=== PATIENT | female | born 1940 | race Caucasian/White ===

== ENCOUNTER 2019-07-17 10:13 | Inpatient (IN) | payer OTHER ==
[~2019-07-17] VITALS: Ht 165.1 cm; Wt 64.1 kg
[2019-07-17 10:42] LABS: Urine Amorphous Crystal FEW /hpf (None Seen); Urine Bacteria NONE SEEN /hpf (None Seen); Urine Blood Negative /uL (Negative); Urine Mucus FEW (None Seen); Urine Specific Gravity 1.017 (1.001-1.035); Urine WBC 1 /hpf (0 - 5)
[2019-07-17 10:52] LABS: Basophils # (auto) 0 10 ^3/uL (0-0.2); Eosinophils # (auto) 0.1 10 ^3/uL (0-0.8); Monocytes # (auto) 0.4 10 ^3/uL (0-1.3); Neutrophils # (auto) 2.2 10 ^3/uL (1.6-8.6); Neutrophils % (auto) 62.1 % (37.0-80.0); White Blood Cell 3.5 10^3/uL (4.4-10.8)
[2019-07-17 10:53] LABS: Basophils % (auto) 0.7 % (0.0-2.0); Eosinophils % (auto) 1.9 % (0.0-7.0); Hematocrit 34.5 % (36.0-46.0); Hemoglobin 11.2 g/dL (12.2-16.2); Lymphocytes # (auto) 0.9 10 ^3/uL (0.4-5.4); Lymphocytes % (auto) 24.2 % (10.0-50.0); Mean Corpuscular Hemoglobin 26.1 pg (28.0-32.0); Mean Corpuscular Hgb Conc. 32.4 g/dL (32.0-36.0); Mean Corpuscular Volume 80.5 fL (80.0-100.0); Monocytes % (auto) 11.1 % (0.0-12.0); Nucleated Red Blood Cells % 0.1 %; Platelet Count (auto) 98 10^3/uL (140-450); Red Blood Cells 4.28 10^6/uL (4.0-5.20); Red Cell Distribution Width 15.8 % (11.8-14.3)
[2019-07-17] MEDS ORDERED: PANTOPRAZOLE 40 MG/10 ML VIAL INJ IV ONE (11:00)
[2019-07-17 11:07] LABS: INR 1.01 (0.9-1.15); Partial Thromboplastin Time 28.1 sec (23.64-32.05)
[2019-07-17 11:13] LABS: Albumin 3.7 g/dL (3.4-5.0); Calcium 9.6 mg/dL (8.5-10.1); Potassium 3.6 mmol/L (3.5-5.1)
[2019-07-17 11:16] LABS: BUN/Creatinine Ratio 12.5; Bilirubin, Total 0.7 mg/dL (0.2-1.0); Total Protein 7.6 g/dL (6.4-8.2)
[2019-07-17] MEDS ORDERED: MORPHINE SULF INJ 2 MG/ML SYRINGE 1ML IV PRN (13:45)
[2019-07-17] MEDS ORDERED: NITROGLYCERIN 0.4 MG SL TAB SL PRN (13:45)
[2019-07-17] MEDS ORDERED: DEXTROSE (50%) 50ML SYRG IV PRN (13:45)
[2019-07-17] MEDS ORDERED: SODIUM CHLORIDE 0.9% 1,000 ML IV ONE (14:45)
[2019-07-17] MEDS: cefTRIAXone 1GM/50ML D5W 50 ML IV SCH (15:00)
[2019-07-17 16:50] VITALS: BP 146/82
[2019-07-17] MEDS: InsuLIN REG 1unit/0.01ml Soln (100units/ml) SC SCH ×2 (17:00→21:20)
--- NOTE | 2019-07-17 17:00 | NUR ---
Telemetry admit from ER PRETTY CHRISTIAN admitted to Telemetry unit after SBAR received. Patient oriented to Soledad Thao RN, unit, room, bed, and unit policies regarding patient care and visiting hours. Patient now on continuous telemetry monitoring, tele box # [id number] and telemetry reading on arrival to unit is 84. Patient tolerates room air, no acute distress noted, placed on standby bedside oxygen if needed, weighed by bed scale and encouraged to call if she needs something. All questions and concerns addressed, patient verbalized understanding. Note: Patient awake, oriented x4, no acute distress noted. Ambulatory to the bathroom.
--- NOTE | 2019-07-17 17:15 | NUR ---
Specimen bottle and hat provided for stool specimen collection to test for stool occult as ordered. Instructions given to patient to call/press the call light when she has the urge to have bowel movement for stool specimen collection.
[2019-07-17] MEDS: SUCRALFATE 1 GM TAB PO SCH ×2 (17:34→21:17)
[2019-07-17] MEDS: ACCU-CHEK COMFORT CURVE STRIP VI SCH ×2 (17:34→21:20)
--- NOTE | 2019-07-17 17:50 | NUR ---
Patient ambulated to the bathroom. Heart rate on phototypesetting equipment monitor >100.
[2019-07-17] MEDS ORDERED: TURM500C3 PO (17:51)
[2019-07-17] MEDS ORDERED: VITA80009 PO (17:51)
[2019-07-17] MEDS ORDERED: VITA400T4 PO (17:51)
[2019-07-17] MEDS ORDERED: OMEP20TA PO (17:51)
[2019-07-17] MEDS ORDERED: PYRI200T8 PO (17:51)
[2019-07-17] MEDS ORDERED: SELE200T23 PO (17:51)
[2019-07-17] MEDS ORDERED: CHOL20007 PO (17:51)
[2019-07-17] MEDS ORDERED: NITR1SPR TL (17:51)
[2019-07-17] MEDS ORDERED: GARL200T PO (17:51)
[2019-07-17] MEDS ORDERED: ACET-1156 PO (17:51)
[2019-07-17] MEDS ORDERED: GING500C3 PO (17:51)
[2019-07-17] MEDS ORDERED: AMLO5TAB15 PO (17:51)
[2019-07-17] MEDS ORDERED: CYA100I IM (17:51)
[2019-07-17] MEDS ORDERED: PRAV20TA3 PO (17:51)
--- NOTE | 2019-07-17 18:00 | NUR ---
Patient back to bed. No untoward incident noted.
--- NOTE | 2019-07-17 18:20 | NUR ---
Clear Liquid Diet dinner tray served.
--- NOTE | 2019-07-17 19:50 | NUR ---
Opening Shift Note Assumed care of patient, awake and alert. No S/S of distress/SOB or pain. Patient stated if she can have a bandaid, per patient " i have this scratch on my left hip from rolling around in bed at home and from my underwear." Bandaid provided to patient , area has two scratches to her left thigh/buttock.Instructed on POC and to call for assist PRN, will continue to monitor for changes Q1hr and PRN. bed in low position and call light within reach. bed in low position and call light within reach
[2019-07-17] MEDS: PANTOPRAZOLE 40 MG/10 ML VIAL INJ IV SCH (21:17)
[2019-07-17 22:00] VITALS: BP 138/71
[2019-07-18 05:00] VITALS: BP 134/56
[2019-07-18 05:47] LABS: Basophils # (auto) 0 10 ^3/uL (0-0.2); Eosinophils # (auto) 0.1 10 ^3/uL (0-0.8); Hemoglobin 10.2 g/dL (12.2-16.2); Monocytes % (auto) 12.4 % (0.0-12.0); Neutrophils # (auto) 1.1 10 ^3/uL (1.6-8.6); Nucleated Red Blood Cells % 0.1 %
[2019-07-18 05:49] LABS: Eosinophils % (auto) 3.9 % (0.0-7.0); Hematocrit 30.9 % (36.0-46.0); Lymphocytes # (auto) 0.5 10 ^3/uL (0.4-5.4); Mean Corpuscular Hemoglobin 26.5 pg (28.0-32.0); Mean Corpuscular Hgb Conc. 32.9 g/dL (32.0-36.0); Mean Corpuscular Volume 80.5 fL (80.0-100.0); Monocytes # (auto) 0.2 10 ^3/uL (0-1.3); Neutrophils % (auto) 55.7 % (37.0-80.0); Platelet Count (auto) 74 10^3/uL (140-450); Red Blood Cells 3.84 10^6/uL (4.0-5.20); Red Cell Distribution Width 15.7 % (11.8-14.3)
[2019-07-18 06:01] LABS: INR 1.09 (0.9-1.15); Partial Thromboplastin Time 28.9 sec (23.64-32.05)
[2019-07-18 06:02] LABS: Albumin 3.1 g/dL (3.4-5.0); Potassium 3.8 mmol/L (3.5-5.1)
[2019-07-18 06:08] LABS: BUN/Creatinine Ratio 11.9; Bilirubin, Total 0.5 mg/dL (0.2-1.0); Calcium 8.3 mg/dL (8.5-10.1); Total Protein 6.4 g/dL (6.4-8.2)
[2019-07-18] MEDS: ACCU-CHEK COMFORT CURVE STRIP VI SCH ×3 (06:32→21:56)
[2019-07-18] MEDS: SUCRALFATE 1 GM TAB PO SCH ×4 (06:32→21:56)
[2019-07-18] MEDS: InsuLIN REG 1unit/0.01ml Soln (100units/ml) SC SCH ×4 (06:32→21:58)
--- NOTE | 2019-07-18 06:58 | NUR ---
patient rounds patient is in bed sleeping. no signs of sob distress or pain. bed in low position and call light within reach
--- NOTE | 2019-07-18 07:34 | NUR ---
REPORT GIVEN TO DAYSHIFT RN PATIENT DENIES SOB DISTRESS OR PAIN
--- NOTE | 2019-07-18 08:30 | NUR ---
ASSUMED CARE. VERBALLY APPROPRIATE. PLEASANT. REPORTS WELL RESTED. LUNG SOUNDS CLEAR. INDEPENDENT IN ALL ADL'S. STOOL SPECIMEN COLLECTED AND SENT TO LAB. NO COMPLAINTS AT THIS TIME.
[2019-07-18 09:00] VITALS: BP 133/69
[2019-07-18] MEDS: cefTRIAXone 1GM/50ML D5W 50 ML IV SCH (09:00)
--- NOTE | 2019-07-18 10:00 | NUR ---
DR. CHIARA CHARLES. PLANS FOR EGD TODAY AT 1300. TO REMAIN NPO. ASKS FOR PREVIOUS RECORDS FROM LAST GI SCOPES.
[2019-07-18] MEDS: PANTOPRAZOLE 40 MG/10 ML VIAL INJ IV SCH (11:00)
--- NOTE | 2019-07-18 12:00 | NUR ---
CONSENTS SIGNED FOR EGD. AND REQUEST FAXED FOR MEDICAL RECORDS.
[2019-07-18 12:39] VITALS: BP 136/68
--- NOTE | 2019-07-18 12:45 | NUR ---
TO PRE OP IN BED. UPPER DENTURES AND RING REMOVED EACH PLACED IN CUP WITH LABEL AND SET IN TOP DRAWER OF BEDSIDE TABLE IN ROOM 221B
[2019-07-18] MEDS ORDERED: LIDOCAINE VISCOUS 2% 15ML UD ONE (12:50)
[2019-07-18] MEDS ORDERED: SODIUM CHLORIDE LOCK 10 ML ONE (12:50)
[2019-07-18] MEDS ORDERED: diphenhdrAMINE HCL 50 MG/1 ML VL ONE (12:51)
[2019-07-18] MEDS: MIDAZOLAM HCL 5 MG/ML-1ML VIAL ONE ×3 (13:30→13:36)
[2019-07-18] MEDS: fentaNYL CITRATE 100 MCG/2 ML VL ONE ×2 (13:30→13:33)
--- NOTE | 2019-07-18 14:30 | NUR ---
RETURNS TO ROOM 221B FULLY AWAKE. DENTURES AND RING HANDED TO PT. SHE PLACES DENTURES IN MOUTH AND RING BACK ON FINGER. RESTFUL. NO COMPLAINTS.
--- NOTE | 2019-07-18 16:16 | NUR ---
REQUESTS TO GO HOME TONIGHT. DR. MOREIRA CONTACTED BY PHONE MADE AWARE. ORDERS [facility] IN AM. PLANS FOR DC HOME TOMORROW AM IF HBG REMAINS STABLE. RELAYED PLANS TO PT. TOLERATING CLEAR LIQUIDS. DECLINES JELLO. MECH SOFT DIET ORDERED FOR DINNER.
[2019-07-18 16:20] VITALS: BP 112/78
--- NOTE | 2019-07-18 19:30 | NUR ---
Opening Shift Note Assumed care of patient, awake and alert. No S/S of distress/SOB or pain. Instructed on POC and to call for assist PRN, will continue to monitor for changes Q1hr and PRN. bed in low position call light within reach.
[2019-07-18 22:00] VITALS: BP 115/60
[2019-07-19 05:00] VITALS: BP 114/66
[2019-07-19] MEDS: InsuLIN REG 1unit/0.01ml Soln (100units/ml) SC SCH (06:17)
[2019-07-19] MEDS: SUCRALFATE 1 GM TAB PO SCH (06:18)
[2019-07-19 06:46] LABS: Basophils # (auto) 0 10 ^3/uL (0-0.2); Eosinophils # (auto) 0.1 10 ^3/uL (0-0.8); Lymphocytes # (auto) 0.7 10 ^3/uL (0.4-5.4); White Blood Cell 3.4 10^3/uL (4.4-10.8)
[2019-07-19 06:48] LABS: Basophils % (auto) 0.5 % (0.0-2.0); Hematocrit 35.7 % (36.0-46.0); Hemoglobin 11.7 g/dL (12.2-16.2); Lymphocytes % (auto) 20.2 % (10.0-50.0); Mean Corpuscular Hemoglobin 26.2 pg (28.0-32.0); Mean Corpuscular Hgb Conc. 32.6 g/dL (32.0-36.0); Mean Corpuscular Volume 80.3 fL (80.0-100.0); Monocytes # (auto) 0.3 10 ^3/uL (0-1.3); Monocytes % (auto) 10.2 % (0.0-12.0); Neutrophils # (auto) 2.3 10 ^3/uL (1.6-8.6); Neutrophils % (auto) 67.1 % (37.0-80.0); Platelet Count (auto) 97 10^3/uL (140-450); Red Blood Cells 4.45 10^6/uL (4.0-5.20); Red Cell Distribution Width 15.8 % (11.8-14.3)
--- NOTE | 2019-07-19 06:53 | NUR ---
patient rounds patient is in bed sleeping bilateral chest rise and fall rr 16. shows no signs of sob/distress or pain
--- NOTE | 2019-07-19 07:32 | NUR ---
REPORT GIVEN TO DAYSHIFT RN. PATIENT DENIES SOB DISTRESS OR PAIN
[2019-07-19 09:00] VITALS: BP 102/50
--- NOTE | 2019-07-19 09:00 | NUR ---
DR. MOREIRA ROUNDED. EXPLAINED IMPORTANCE OF TAKING NEW MEDICATIONS. INDEPENDENT IN ALL ADL'S. DENIES ANY S/S OF BLEEDING. PREPARING FOR DC HOME.
[2019-07-19 10:02] VITALS: BP 102/50
[2019-07-19] MEDS: PANTOPRAZOLE 40 MG/10 ML VIAL INJ IV SCH (10:30)
--- NOTE | 2019-07-19 11:00 | NUR ---
IV REMOVED CANNULA INTACT. DSG APPLIED. DC INSTRUCTIONS REVIEWED AND PRESCRIPTION PROVIDED. DC HOME VIA WC TO LOBBY BY JOSE.
== END 2019-07-19 10:55 | disposition home or self-care (01) | DRG 381 ==
LOC: ER 10:15 → TELE 10:16 → TELE-CENTR 17:26
PROVIDERS: ADMIT Nurse Practitioner Acute Care; ATTEND Family Medicine
PROC: 0DB68ZX Excision of Stomach, Via Natural or Artificial Opening Endoscopic, Diagnostic (ICD-10-PCS; 2019-07-18)
PROC: 0DB88ZX Excision of Small Intestine, Via Natural or Artificial Opening Endoscopic, Diagnostic (ICD-10-PCS; principal; 2019-07-18 13:27)
DX: K22.11 Ulcer of esophagus with bleeding (principal); K76.6 Portal hypertension; D62 Acute posthemorrhagic anemia; N30.00 Acute cystitis without hematuria; D61.818 Other pancytopenia; K44.9 Diaphragmatic hernia without obstruction or gangrene; K25.4 Chronic or unspecified gastric ulcer with hemorrhage; K74.60 Unspecified cirrhosis of liver; N18.3 Chronic kidney disease, stage 3 (moderate); N20.0 Calculus of kidney; I12.9 Hypertensive chronic kidney disease with stage 1 through stage 4 chronic kidney disease, or unspecified chronic kidney disease; K31.9 Disease of stomach and duodenum, unspecified; E11.22 Type 2 diabetes mellitus with diabetic chronic kidney disease; Z87.11 Personal history of peptic ulcer disease; Z79.84 Long term (current) use of oral hypoglycemic drugs; Z90.710 Acquired absence of both cervix and uterus; Z79.899 Other long term (current) drug therapy; Z90.49 Acquired absence of other specified parts of digestive tract
CPT/HCPCS: 36415; 43239; 71045; 74176; 80053; 81001; 82270; 82962; 83036; 84484; 85025; 85610; 85730; 86850; 86900; 86901; 96365; 96375; C9113; G0378; J0696; J1815; J2250

== ENCOUNTER 2019-08-27 19:34 | Emergency (ER) | payer OTHER ==
[~2019-08-27] VITALS: Ht 165.1 cm; Wt 63.5 kg
[~2019-08-27 19:34] MED LIST: ACET-1156 PO; AMLO5TAB15 PO; CHOL20007 PO; CYA100I IM; GARL200T PO; GING500C3 PO; NITR1SPR TL; OMEP20TA PO; PRAV20TA3 PO; PYRI200T8 PO; SELE200T23 PO; TURM500C3 PO; VITA400T4 PO; VITA80009 PO
[2019-08-27 20:07] LABS: Basophils # (auto) 0 10 ^3/uL (0-0.2); Eosinophils # (auto) 0.1 10 ^3/uL (0-0.8); Hematocrit 33.7 % (36.0-46.0); Lymphocytes # (auto) 0.6 10 ^3/uL (0.4-5.4); Mean Corpuscular Volume 78.4 fL (80.0-100.0); Monocytes # (auto) 0.3 10 ^3/uL (0-1.3); Neutrophils # (auto) 1.7 10 ^3/uL (1.6-8.6); Nucleated Red Blood Cells % 0.1 %; White Blood Cell 2.7 10^3/uL (4.4-10.8)
[2019-08-27 20:08] LABS: Basophils % (auto) 0.5 % (0.0-2.0); Eosinophils % (auto) 2.1 % (0.0-7.0); Hemoglobin 10.8 g/dL (12.2-16.2); Lymphocytes % (auto) 22.5 % (10.0-50.0); Mean Corpuscular Hemoglobin 25.1 pg (28.0-32.0); Mean Corpuscular Hgb Conc. 32.1 g/dL (32.0-36.0); Monocytes % (auto) 11.5 % (0.0-12.0); Neutrophils % (auto) 63.4 % (37.0-80.0); Platelet Count (auto) 103 10^3/uL (140-450); Red Cell Distribution Width 17.9 % (11.8-14.3)
[2019-08-27] MEDS ORDERED: SODIUM CHLORIDE 0.9% 500 ML IV ONE (20:15)
[2019-08-27] MEDS ORDERED: MORPHINE SULFATE 4 MG/ML SYR/VIAL IV ONE (20:15)
[2019-08-27] MEDS ORDERED: ONDANSETRON HCL 4 MG/2 ML VIAL IV ONE (20:15)
[2019-08-27 20:27] LABS: Alanine Aminotransferase 24 U/L (13-56); Albumin 3.3 g/dL (3.4-5.0); Anion Gap 5 (5-15); Aspartate Aminotransferase 23 U/L (15-37); BUN/Creatinine Ratio 13.1; Blood Urea Nitrogen 11 mg/dL (7-18); Calcium 9.2 mg/dL (8.5-10.1); Carbon Dioxide 26 mmol/L (21-32); Chloride 109 mmol/L (98-107); GFR African American 84 mL/min; GFR Non-African American 70 mL/min; Glucose 163 mg/dL (74-106); Potassium 3.7 mmol/L (3.5-5.1); Sodium 140 mmol/L (136-145)
[2019-08-27 20:28] LABS: INR 1.04 (0.9-1.15); Partial Thromboplastin Time 28.1 sec (23.64-32.05)
[2019-08-27 20:32] LABS: Alkaline Phosphatase 97 U/L (45-117); Bilirubin, Total 0.4 mg/dL (0.2-1.0); Total Protein 7.3 g/dL (6.4-8.2)
[2019-08-27 23:16] LABS: Urine Bacteria NONE SEEN /hpf (None Seen); Urine Blood Negative /uL (Negative); Urine Specific Gravity 1.007 (1.001-1.035); Urine WBC 11 /hpf (0 - 5)
[2019-08-28] MEDS ORDERED: MORPHINE SULFATE 4 MG/ML SYR/VIAL IV ONE (00:45)
[2019-08-28] MEDS ORDERED: cefTRIAXone 1GM/50ML D5W 50 ML IV SCH (09:00)
[2019-08-28 11:20] VITALS: BP 143/60
== END 2019-08-28 12:25 | disposition home or self-care (01) ==
LOC: ER 19:34
DX: R07.9 Chest pain, unspecified (principal); R79.1 Abnormal coagulation profile; D53.9 Nutritional anemia, unspecified; I10 Essential (primary) hypertension; E11.9 Type 2 diabetes mellitus without complications; Z91.041 Radiographic dye allergy status; Z90.49 Acquired absence of other specified parts of digestive tract; Z90.710 Acquired absence of both cervix and uterus; Z79.899 Other long term (current) drug therapy; Z88.8 Allergy status to other drugs, medicaments and biological substances
CPT/HCPCS: 36415; 71045; 78582; 80053; 81001; 82962; 83605; 83735; 83880; 84443; 84484; 85025; 85379; 85610; 85730; 87040; 93005; 93970; 96365; 96375; 96376; 99285; J2270; J2405; J7040

== ENCOUNTER → 2019-12-13 | Emergency (ER) | payer OTHER ==
[~2019-12-13] VITALS: Ht 165.1 cm; Wt 63.5 kg
[~2019-12-13] MED LIST changes: +ONDANSETRON HCL 4 MG/2 ML VIAL IV ONE; +PANTOPRAZOLE 40 MG/10 ML VIAL INJ IV ONE; +SODIUM CHLORIDE 0.9% 1,000 ML IV ONE; +SODIUM CHLORIDE 0.9% 1,000 ML IVB ONE
[2019-12-13 14:26] LABS: Basophils # (auto) 0 10 ^3/uL (0-0.2); Eosinophils # (auto) 0.1 10 ^3/uL (0-0.8); Lymphocytes # (auto) 0.7 10 ^3/uL (0.4-5.4); Monocytes # (auto) 0.4 10 ^3/uL (0-1.3); Neutrophils # (auto) 2.8 10 ^3/uL (1.6-8.6); Red Blood Cells 4.41 10^6/uL (4.0-5.20)
[2019-12-13 14:28] LABS: Basophils % (auto) 0.7 % (0.0-2.0); Eosinophils % (auto) 1.4 % (0.0-7.0); Hematocrit 33.1 % (36.0-46.0); Hemoglobin 10.3 g/dL (12.2-16.2); Lymphocytes % (auto) 18.3 % (10.0-50.0); Mean Corpuscular Hemoglobin 23.5 pg (28.0-32.0); Mean Corpuscular Hgb Conc. 31.3 g/dL (32.0-36.0); Mean Corpuscular Volume 74.9 fL (80.0-100.0); Monocytes % (auto) 10.5 % (0.0-12.0); Neutrophils % (auto) 69.1 % (37.0-80.0); Nucleated Red Blood Cells % 0.1 %; Platelet Count (auto) 97 10^3/uL (140-450); Red Cell Distribution Width 19.7 % (11.8-14.3)
[2019-12-13 14:51] LABS: Albumin 3.6 g/dL (3.4-5.0); Anion Gap 4 (5-15); Blood Urea Nitrogen 9 mg/dL (7-18); Calcium 9.3 mg/dL (8.5-10.1); Carbon Dioxide 27 mmol/L (21-32); Chloride 108 mmol/L (98-107); Glucose 81 mg/dL (74-106); Potassium 3.5 mmol/L (3.5-5.1); Sodium 139 mmol/L (136-145)
[2019-12-13 14:57] LABS: Alanine Aminotransferase 25 U/L (13-56); Alkaline Phosphatase 85 U/L (45-117); Aspartate Aminotransferase 22 U/L (15-37); BUN/Creatinine Ratio 12.5; Bilirubin, Total 0.7 mg/dL (0.2-1.0); GFR African American 100 mL/min; GFR Non-African American 83 mL/min; Total Protein 7.2 g/dL (6.4-8.2)
[2019-12-13 16:19] LABS: Urine Bacteria MANY /hpf (None Seen); Urine Blood Negative /uL (Negative); Urine Mucus FEW (None Seen); Urine Specific Gravity 1.009 (1.001-1.035); Urine WBC 10 /hpf (0 - 5)
[2019-12-13 18:28] VITALS: BP 136/61
[2019-12-13 18:36] LABS: INR 1.03 (0.9-1.15); Partial Thromboplastin Time 28.1 sec (23.0-31.2)
== END | disposition home or self-care (01) ==
LOC: ER 13:42
DX: D50.0 Iron deficiency anemia secondary to blood loss (chronic) (principal); D69.6 Thrombocytopenia, unspecified; N39.0 Urinary tract infection, site not specified; N20.0 Calculus of kidney; R18.8 Other ascites; K74.60 Unspecified cirrhosis of liver; K92.1 Melena; I10 Essential (primary) hypertension; E11.9 Type 2 diabetes mellitus without complications; Z88.6 Allergy status to analgesic agent; Z91.041 Radiographic dye allergy status; Z88.8 Allergy status to other drugs, medicaments and biological substances
CPT/HCPCS: 36415; 71045; 74176; 80053; 81001; 83735; 84484; 85025; 85610; 85730; 93005; 96361; 96374; 99291; C9113; J7030

== ENCOUNTER 2022-01-23 10:06 | Emergency (ER) | payer OTHER ==
[~2022-01-23] VITALS: Ht 165.1 cm; Wt 66.0 kg
[~2022-01-23 10:06] MED LIST changes: +AMLO-489 PO; -AMLO5TAB15 PO; -ONDANSETRON HCL 4 MG/2 ML VIAL IV ONE; -PANTOPRAZOLE 40 MG/10 ML VIAL INJ IV ONE; -SODIUM CHLORIDE 0.9% 1,000 ML IV ONE; -SODIUM CHLORIDE 0.9% 1,000 ML IVB ONE
[2022-01-23 10:44] VITALS: BP 136/70
[2022-01-23] MEDS ORDERED: HYDROcodone-ACET 5/325MG TAB PO ONE (11:45)
[2022-01-23] MEDS ORDERED: HYDR-4902 PO (12:47)
[2022-01-23] MEDS ORDERED: PRED20TA2 PO (12:47)
== END 2022-01-23 12:57 | disposition home or self-care (01) ==
LOC: EDBD 10:06 → ER 10:06
DX: M54.16 Radiculopathy, lumbar region (principal); M51.36 Other intervertebral disc degeneration, lumbar region; M48.061 Spinal stenosis, lumbar region without neurogenic claudication; E11.9 Type 2 diabetes mellitus without complications; I10 Essential (primary) hypertension; M19.90 Unspecified osteoarthritis, unspecified site; Z90.49 Acquired absence of other specified parts of digestive tract; Z90.710 Acquired absence of both cervix and uterus; Z79.899 Other long term (current) drug therapy; Z88.8 Allergy status to other drugs, medicaments and biological substances
CPT/HCPCS: 72131

== ENCOUNTER 2022-05-05 10:06 | Emergency (ER) | payer OTHER ==
[~2022-05-05] VITALS: Ht 165.1 cm; Wt 68.0 kg
[~2022-05-05 10:06] MED LIST changes: +HYDR-4902 PO; +PRED20TA2 PO
[2022-05-05 11:02] LABS: Basophils # (auto) 0 10 ^3/uL (0-0.2); Basophils % (auto) 0.9 % (0.0-2.0); Eosinophils # (auto) 0.3 10 ^3/uL (0-0.8); Eosinophils % (auto) 6.4 % (0.0-7.0); Hematocrit 40.9 % (36.0-46.0); Hemoglobin 13.4 g/dL (12.2-16.2); Lymphocytes # (auto) 0.9 10 ^3/uL (0.4-5.4); Lymphocytes % (auto) 19.1 % (10.0-50.0); Mean Corpuscular Hemoglobin 29.3 pg (28.0-32.0); Mean Corpuscular Hgb Conc. 32.8 g/dL (32.0-36.0); Mean Corpuscular Volume 89.2 fL (80.0-100.0); Monocytes # (auto) 0.6 10 ^3/uL (0-1.3); Monocytes % (auto) 11.6 % (0.0-12.0); Nucleated Red Blood Cells % 0.1 %; Red Blood Cells 4.59 10^6/uL (4.0-5.20); Red Cell Distribution Width 17.6 % (11.8-14.3); White Blood Cell 4.9 10^3/uL (4.4-10.8)
[2022-05-05 11:30] LABS: Albumin 2.2 g/dL (3.4-5.0); BUN/Creatinine Ratio 8.3; Calcium 9.6 mg/dL (8.5-10.1); Potassium 4.4 mmol/L (3.5-5.1)
[2022-05-05 11:33] LABS: Bilirubin, Total 1.3 mg/dL (0.2-1.0); Total Protein 5.8 g/dL (6.4-8.2)
[2022-05-05] MEDS ORDERED: SODIUM CHLORIDE 0.9% 1,000 ML IV ONE (12:30)
[2022-05-05 15:04] VITALS: BP 128/74
[2022-05-05] MEDS: MORPHINE SULFATE INJ 2 MG/ml SYRG IM ONE (15:04)
== END 2022-05-05 15:25 | disposition left against medical advice (07) ==
LOC: ER 10:06 → EDBD 10:06 → ER 15:25
DX: R06.02 Shortness of breath (principal); G89.4 Chronic pain syndrome; M46.36 Infection of intervertebral disc (pyogenic), lumbar region; E43 Unspecified severe protein-calorie malnutrition; E11.9 Type 2 diabetes mellitus without complications; I10 Essential (primary) hypertension; Z90.49 Acquired absence of other specified parts of digestive tract; Z68.24 Body mass index [BMI] 24.0-24.9, adult; Z90.710 Acquired absence of both cervix and uterus
CPT/HCPCS: 36415; 71046; 80053; 83735; 83880; 84484; 85025; 85379; 93005; 96372; 99285; J2270

== ENCOUNTER 2022-06-11 15:37 | Emergency (ER) | payer OTHER ==
[~2022-06-11] VITALS: Ht 160 cm; Wt 50.0 kg
[2022-06-11] MEDS ORDERED: SODIUM CHLORIDE 0.9% 1,000 ML IV ONE (18:30)
[2022-06-11 19:24] LABS: Albumin 1.4 g/dL (3.4-5.0); Calcium 8.6 mg/dL (8.5-10.1); Magnesium 2.2 mg/dL (1.6-2.6)
[2022-06-11 19:28] LABS: BUN/Creatinine Ratio 9.1; Bilirubin, Total 1.2 mg/dL (0.2-1.0); Total Protein 4.9 g/dL (6.4-8.2)
[2022-06-11 20:03] LABS: Basophils # (auto) 0.1 10 ^3/uL (0-0.2); Basophils % (auto) 0.5 % (0.0-2.0); Eosinophils # (auto) 0.2 10 ^3/uL (0-0.8); Eosinophils % (auto) 1.5 % (0.0-7.0); Hematocrit 37.1 % (36.0-46.0); Hemoglobin 12.6 g/dL (12.2-16.2); Lymphocytes # (auto) 1.4 10 ^3/uL (0.4-5.4); Lymphocytes % (auto) 13.5 % (10.0-50.0); Mean Corpuscular Hemoglobin 30.7 pg (28.0-32.0); Mean Corpuscular Hgb Conc. 33.9 g/dL (32.0-36.0); Mean Corpuscular Volume 90.6 fL (80.0-100.0); Monocytes # (auto) 1.4 10 ^3/uL (0-1.3); Monocytes % (auto) 13.9 % (0.0-12.0); Neutrophils # (auto) 7.3 10 ^3/uL (1.6-8.6); Neutrophils % (auto) 70.6 % (37.0-80.0); Nucleated Red Blood Cells % 0.1 %; Red Blood Cells 4.09 10^6/uL (4.0-5.20); White Blood Cell 10.3 10^3/uL (4.4-10.8)
[2022-06-11 20:08] LABS: Red Cell Distribution Width 20.8 % (11.8-14.3)
[2022-06-11] MEDS ORDERED: POTASSIUM EFFERVESENT TAB 25 MEQ PO ONE (21:30)
[2022-06-11] MEDS ORDERED: SODIUM CHLORIDE 0.9% 500 ML IV ONE (21:30)
[2022-06-11 23:07] LABS: INR 1.34 (0.9-1.15)
[2022-06-12 01:36] VITALS: BP 96/43
== END 2022-06-12 02:00 | disposition short-term general hospital (02) ==
LOC: EDUNIT# 15:37 → ER 15:37 → EEVIPCON 15:37 → EDBD 15:37 → ER 06-12 02:00
DX: E86.0 Dehydration (principal); N17.9 Acute kidney failure, unspecified; I10 Essential (primary) hypertension; E11.9 Type 2 diabetes mellitus without complications; Z86.2 Personal history of diseases of the blood and blood-forming organs and certain disorders involving the immune mechanism; Z90.49 Acquired absence of other specified parts of digestive tract; Z90.710 Acquired absence of both cervix and uterus; Z90.89 Acquired absence of other organs; Z79.899 Other long term (current) drug therapy; Z88.8 Allergy status to other drugs, medicaments and biological substances; Z20.822 Contact with and (suspected) exposure to COVID-19
CPT/HCPCS: 36415; 71045; 80053; 82140; 83735; 84484; 85025; 85610; 87426; 93005; 96360; 99285; J7030; J7040